=== PATIENT | male | born 1940 | race Two or more races ===

== ENCOUNTER → 2017-08-20 | Outpatient (CLI) | payer OTHER | END | disposition home or self-care (01) | LOC: LAB 12:33 | DX: R97.20 Elevated prostate specific antigen [PSA] (principal) ==

== ENCOUNTER 2017-09-18 07:59 | Outpatient (CLI) | payer OTHER | END 2017-09-18 09:02 | disposition home or self-care (01) | LOC: SONOGRAMA 07:59 | DX: R97.20 Elevated prostate specific antigen [PSA] (principal) ==

== ENCOUNTER 2017-10-15 11:32 | Outpatient (CLI) | payer OTHER | END 2017-10-15 15:00 | disposition home or self-care (01) | LOC: TOM 11:32 | DX: C61 Malignant neoplasm of prostate (principal) ==

== ENCOUNTER 2017-10-15 12:41 | Outpatient (CLI) | payer OTHER | END 2017-10-15 15:37 | disposition home or self-care (01) | LOC: RAD 12:41 | DX: C61 Malignant neoplasm of prostate (principal) ==